=== PATIENT | female | born 1975 ===

== ENCOUNTER 2020-03-14 11:00 | Inpatient (IN) | payer OTHER ==
[~2020-03-14] VITALS: Ht 157.5 cm; Wt 93.4 kg
[2020-03-14] MEDS ORDERED: ELIQUIS5 MG PO (14:51)
[2020-03-24] MEDS ORDERED: FOLIC ACID1 MG PO (08:12)
[2020-03-24] MEDS ORDERED: FERROUS SULFAT325 M1 PO (08:12)
[2020-03-24] MEDS ORDERED: OXYC1TAB9 PO (08:12)
== END 2020-03-24 12:34 | disposition home or self-care (01) | DRG 743 ==
LOC: O/R 03-21 09:35 → SURG 03-21 16:46
PROVIDERS: ADMIT Obstetrics & Gynecology Obstetrics; ATTEND Obstetrics & Gynecology Obstetrics
PROC: 0UB70ZZ Excision of Bilateral Fallopian Tubes, Open Approach (ICD-10-PCS; 2020-03-21)
PROC: 0UT90ZZ Resection of Uterus, Open Approach (ICD-10-PCS; principal; 2020-03-21 11:00)
DX: N80.0 Endometriosis of uterus (principal); D25.1 Intramural leiomyoma of uterus; D50.0 Iron deficiency anemia secondary to blood loss (chronic); N83.8 Other noninflammatory disorders of ovary, fallopian tube and broad ligament